=== PATIENT | female | born 1955 ===

== ENCOUNTER → 2023-10-16 | Outpatient (CLI) | payer MEDICARE | LOC: LAB SHORT 08:15 → LAB 08:15 | DX: N30.00 Acute cystitis without hematuria (principal) | CPT/HCPCS: 87086 ==

== ENCOUNTER → 2025-04-14 | Outpatient (CLI) | payer MEDICARE, OTHER ==
[2025-04-14 12:19] LABS: Stool Occult Bld Immuno 1 Negative (NEGATIVE)
[2025-04-14 13:58] LABS: Campylobacter Sp Not Detected (NOT DETECT); E. Coli O157 Not Detected (NOT DETECT); Enteroaggregative E. coli-EAEC Not Detected (NOT DETECT); Enteropathogenic E. coli-EPEC Not Detected (NOT DETECT); Enterotoxigenic E. coli-ETEC Not Detected (NOT DETECT); Salmonella Sp Not Detected (NOT DETECT); Shiga Toxin-prod E. coli-STEC Not Detected (NOT DETECT); Shigella/Enteroin E. coli-EIEC Not Detected (NOT DETECT); Vibrio Sp Not Detected (NOT DETECT)
[2025-04-17 18:24] LABS: OVA AND PARASITE,FECAL INTERP Negative (Negative)
== END ==
LOC: LAB SHORT 06:30 → LAB 06:30
PROVIDERS: Physician Assistant
DX: R19.7 Diarrhea, unspecified (principal); R74.8 Abnormal levels of other serum enzymes
CPT/HCPCS: 87177; 87209; 87507; 89055; G0328

== ENCOUNTER 2025-06-09 07:41 | Day surgery (SDC) | payer MEDICARE, OTHER ==
[~2025-06-09] VITALS: Ht 162.6 cm; Wt 93.0 kg
[2025-06-09] MEDS ORDERED: AMLO5 (08:13)
[2025-06-09] MEDS ORDERED: ZESTRIL40 M2 (08:13)
[2025-06-09] MEDS ORDERED: FAMO20 (08:13)
[2025-06-09] MEDS ORDERED: Omeprazole20 M1 (08:13)
[2025-06-09 09:59] VITALS: BP 111/67
== END 2025-06-09 10:12 | disposition home or self-care (01) ==
LOC: ORSCSDS 07:41
PROVIDERS: Internal Medicine Gastroenterology
PROC: 0DBL8ZX Excision of Transverse Colon, Via Natural or Artificial Opening Endoscopic, Diagnostic (ICD-10-PCS; principal; 2025-06-09 09:15)
DX: Z12.11 Encounter for screening for malignant neoplasm of colon (principal); K63.5 Polyp of colon; K57.30 Diverticulosis of large intestine without perforation or abscess without bleeding; R19.5 Other fecal abnormalities; I12.9 Hypertensive chronic kidney disease with stage 1 through stage 4 chronic kidney disease, or unspecified chronic kidney disease; N18.2 Chronic kidney disease, stage 2 (mild); K21.9 Gastro-esophageal reflux disease without esophagitis; Z79.899 Other long term (current) drug therapy
CPT/HCPCS: 88305; J2704; J7120